=== PATIENT | female | born 1995 | race Caucasian/White ===

== ENCOUNTER 2019-11-19 10:48 | Emergency (ER) | payer OTHER ==
[2019-11-19 12:03] LABS: Absolute Lymphocytes (CBC) 1.7 K/uL (0.7-4.9); Basophils % 0.5 % (0-1.3); Hematocrit 41.3 % (36.0-45.0); Lymphocytes % 18.4 % (15.3-44.8); MPV 8.2 fL (7.6-11.3); RBC Red Blood Cell Count 4.85 M/uL (3.86-4.86)
[2019-11-19 12:12] LABS: Urine Blood NEGATIVE (NEG); Urine Glucose NEGATIVE (NEG); Urine Protein NEGATIVE (NEG); Urine Specific Gravity 1.025 (1.005-1.030); Urine pH 6.5 (5.0-7.0)
[2019-11-19 12:13] LABS: Albumin 3.4 g/dL (3.4-5.0); Bilirubin Direct 0.1 mg/dL (0-0.2); Bilirubin Total 0.5 mg/dL (0.2-1.0); Potassium 4.1 mmol/L (3.5-5.1); Protein, Total 7.4 g/dL (6.4-8.2)
[2019-11-19] MEDS ORDERED: NA CHLORIDE 0.9% 1,000 ML ONE (12:48)
[2019-11-19] MEDS ORDERED: ONDANSETRON 4 MG/2 ML VIAL ONE (12:48)
[2019-11-19] MEDS ORDERED: MORPHINE 4 MG/ML SYR ONE (12:48)
--- NOTE | 2019-11-19 13:17 | RAD REPORT ---
EXAM DESCRIPTION: CT - Abdomen Pelvis W Contrast - 11/19/2019 12:41 pm CLINICAL HISTORY: ABD PAIN, vomiting, nausea COMPARISON: No comparisons TECHNIQUE: Biphasic, helical CT imaging of the abdomen and pelvis was performed following 100 ml non -ionic IV contrast. No oral contrast given. All CT scans are performed using dose optimization technique as appropriate and may include automated exposure control or mA/KV adjustment according to patient size. FINDINGS: No suspicious findings in the lung bases. Liver shows a very pronounced fatty infiltration pattern with no focal liver lesions. Spleen and panc reas unremarkable. Gallbladder and biliary tree are also without suspicious finding. Symmetric renal function is seen with no hydronephrosis or suspicious renal mass. No pyelonephritis o r acute parenchymal process. No bladder abnormalities. No adrenal abnormalities. Uterus and ovaries s how no suspicious findings. No dilated bowel loops or bowel wall thickening. Appendix is normal. No active GI process evident. No free air, free fluid or inflammatory stranding. No hernia, mass or bulky lymphadenopathy. No suspicious bony findings. IMPRESSION: Contrast enhanced CT abdomen and pelvis showing no acute or emergent finding. Diffuse fatty infiltration of the liver.
--- NOTE | 2019-11-19 13:40 | EDPHYS ---
Physician Documentation [facility] Name: Farzaneh Ford Age: 24 yrs Sex: Female : 1995 Arrival Date: 11/19/2019 Time: 10:53 Bed 8 Private MD: ED Physician Domingo Cuevas HPI: 11/18 12:45 This 24 yrs old Female presents to ER via Ambulatory with complaints of kb Abdominal Pain, Weakness. 12:45 The patient presents with abdominal pain in the left upper quadrant, in the left lower kb quadrant. Onset: The symptoms/episode began/occurred 1 week(s) ago. The symptoms do not radiate. Associated signs and symptoms: none. The symptoms are described as constant. Modifying factors: The symptoms are alleviated by nothing, the symptoms are aggravated by nothing. Severity of pain: At its worst the pain was moderate in the emergency department the pain is unchanged. The patient has not experienced similar symptoms in the past. The patient has not recently seen a physician. 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 - Social history:: Smoking status: Patient denies any tobacco usage or history of. ROS: 15:52 Constitutional: Negative for fever, chills, and weight loss, Cardiovascular: Negative kb for chest pain, palpitations, and edema, Respiratory: Negative for shortness of breath, cough, wheezing, and pleuritic chest pain, MS/Extremity: Negative for injury and deformity, Skin: Negative for injury, rash, and discoloration, Neuro: Negative for headache, weakness, numbness, tingling, and seizure. 15:52 Abdomen/GI: Positive for abdominal pain, Negative for nausea, vomiting, and diarrhea. Exam: 15:56 Constitutional: This is a well developed, well nourished patient who is awake, alert, kb and in no acute distress. Head/Face: Normocephalic, atraumatic. Chest/axilla: Normal chest wall appearance and motion. Nontender with no deformity. No lesions are appreciated. Cardiovascular: Regular rate and rhythm with a normal S1 and S2. No gallops, murmurs, or rubs. Normal PMI, no JVD. No pulse deficits. Respiratory: Lungs have equal breath sounds bilaterally, clear to auscultation and percussion. No rales, rhonchi or wheezes noted. No increased work of breathing, no retractions or nasal flaring. Back: No spinal tenderness. No costovertebral tenderness. Full range of motion. Skin: Warm, dry with normal turgor. Normal color with no rashes, no lesions, and no evidence of cellulitis. MS/ Extremity: Pulses equal, no cyanosis. Neurovascular intact. Full, normal range of motion. Neuro: Awake and alert, GCS 15, oriented to person, place, time, and situation. Cranial nerves II-XII grossly intact. Motor strength 5/5 in all extremities. Sensory grossly intact. Cerebellar exam normal. Normal gait. 15:56 Abdomen/GI: Inspection: abdomen appears normal, Bowel sounds: normal, in all quadrants, Palpation: soft, in all quadrants, moderate abdominal tenderness, in the left upper quadrant. Vital Signs: 11:01 BP 106 / 95; Pulse 93; Resp 18; Temp 98.5(O); Pulse Ox 99% on R/A; Weight 108.86 kg; em Height 5 ft. 4 in. (162.56 cm); Pain 3/10; 11:42 BP 108 / 71; Pulse 75; Resp 18; Pulse Ox 96% ; sv 12:45 BP 106 / 58; Pulse 61; Resp 16 S; Pulse Ox 98% on R/A; ca1 13:40 BP 107 / 77; Pulse 57; Resp 16 S; Pulse Ox 98% on R/A; ca1 11:01 Body Mass Index 41.20 (108.86 kg, 162.56 cm) em MDM: 11:07 Patient medically screened. kb 15:56 Data reviewed: vital signs, nurses notes. Data interpreted: Pulse oximetry: on room air kb is 98 %. Interpretation: normal. Counseling: I had a detailed discussion with the patient and/or guardian regarding: the historical points, exam findings, and any diagnostic results supporting the discharge/admit diagnosis, lab results, radiology results, the need for outpatient follow up, a family practitioner, to return to the emergency department if symptoms worsen or persist or if there are any questions or concerns that arise at home. 11/18 11:12 Order name: Basic Metabolic Panel; Complete Time: 12:18 kb 11/18 11:12 Order name: CBC with Diff; Complete Time: 12:09 kb 11/18 11:12 Order name: Hepatic Function; Complete Time: 12:18 kb 11/18 11:12 Order name: Lipase; Complete Time: 12:18 kb 11/18 11:27 Order name: Urine Dipstick--Ancillary (enter results); Complete Time: 12:18 em1 11/18 11:27 Order name: Urine --Ancillary (enter results); Complete Time: 12:18 em1 11/18 11:12 Order name: IV Saline Lock; Complete Time: 11:21 kb 11/18 11:12 Order name: Labs collected and sent; Complete Time: 11:21 kb 11/18 11:12 Order name: Urine Dipstick-Ancillary (obtain specimen); Complete Time: 11:15 kb 11/18 12:31 Order name: CT Abd/Pelvis - IV Contrast Only; Complete Time: 13:26 kb Administered Medications: 12:45 Drug: Zofran (Ondansetron) 4 mg Route: IVP; Site: left antecubital; ca1 13:33 Follow up: Response: No adverse reaction; Nausea is decreased ca1 12:47 Drug: morphine 4 mg {Note: rass 0.} Route: IVP; Site: left antecubital; ca1 13:34 Follow up: Response: No adverse reaction; Pain is decreased; RASS: Alert and Calm (0) ca1 12:49 Drug: NS 0.9% 1000 ml Route: IV; Rate: 1000 ml; Site: left antecubital; ca1 13:45 Follow up: Response: No adverse reaction; IV Status: Completed infusion; IV Intake: ca1 1000ml Disposition: 11/19/19 13:39 Discharged to Home. Impression: Upper abdominal pain, unspecified. - Condition is Stable. - Discharge Instructions: Abdominal Pain, Adult, [id number]. - Prescriptions for Bentyl 20 mg Oral Tablet - take 1 tablet by ORAL route every 6 hours As needed; 20 tablet. - Medication Reconciliation Form, Thank You Letter, Antibiotic Education, Prescription Opioid Use, Work release form form. - Follow up: Emergency Department; When: As needed; Reason: Worsening of condition. Follow up: Private Physician; When: 2 - 3 days; Reason: Recheck today's complaints, Continuance of care, Re-evaluation by your physician. Addendum: 11/20/2019 13:59 Co-signature as Attending Physician, Domingo Cuevas MD I agree with the assessment and k dr plan of care. Signatures: Dispatcher [employer] EDMS Meghan Tirado, ACCOUNTING MANAGER-C ACCOUNTING MANAGER-Ckb Domingo Cuevas MD MD [facility] Adolfo Watts, RN RN em AcEileen yeager RN RN ca1 Corrections: (The following items were deleted from the chart) 11/18 13:49 13:39 11/19/2019 13:39 Discharged to Home. Impression: Upper abdominal pain, ca1 unspecified. Condition is Stable. Forms are Medication Reconciliation Form, Thank You Letter, Antibiotic Education, Prescription Opioid Use. Follow up: Emergency Department; When: As needed; Reason: Worsening of condition. Follow up: Private Physician; When: 2 - 3 days; Reason: Recheck today's complaints, Continuance of care, Re-evaluation by your physician. kb
--- NOTE | 2019-11-19 13:40 | ER ---
Nurse's Notes [facility] Name: Farzaneh Ford Age: 24 yrs Sex: Female : 1995 Arrival Date: 11/19/2019 Time: 10:53 Bed 8 Private MD: Diagnosis: Upper abdominal pain, unspecified Presentation: 11/18 11:01 Chief complaint: Patient states: abdominal pain for one week, nausea and vomiting, em denies fever or urinary symptoms. Coronavirus screen: Client denies travel out of the [place] in the last 14 days. Ebola Screen: Patient negative for fever greater than or equal to 101.5 degrees Fahrenheit, and additional compatible Ebola Virus Disease symptoms Patient denies exposure to infectious person. Patient denies travel to an Ebola-affected area in the 21 days before illness onset. No symptoms or risks identified at this time. Initial Sepsis Screen: Does the patient meet any 2 criteria? HR > 90 bpm. Does the patient have a suspected source of infection? No. Patient's initial sepsis screen is negative. Risk Assessment: Do you want to hurt yourself or someone else? Patient reports no desire to harm self or others. Onset of symptoms was November 12, 2019. 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 - Social history:: Smoking status: Patient denies any tobacco usage or history of. Screenin:10 Abuse screen: Denies threats or abuse. Denies injuries from another. Nutritional ca1 screening: No deficits noted. Tuberculosis screening: No symptoms or risk factors identified. Fall Risk IV access (20 points). Assessment: 11:10 General: Appears in no apparent distress. comfortable, Behavior is calm, cooperative, ca1 appropriate for age. Pain: Complains of pain in abdomen. Pain: Pain currently is 3 out of 10 on a pain scale. Quality of pain is described as sharp, Pain began a week Is continuous. Neuro: Level of Consciousness is awake, alert, obeys commands, Oriented to person, place, time, situation. Cardiovascular: Heart tones S1 S2 present Capillary refill < 3 seconds Patient's skin is warm and dry. Respiratory: Airway is patent Respiratory effort is even, unlabored, Respiratory pattern is regular, symmetrical, Breath sounds are clear bilaterally. GI: Abdomen is round non-distended, Bowel sounds present X 4 quads. Abd is soft X 4 quads Abdomen is tender to palpation in right upper quadrant, left upper quadrant and left lower quadrant Reports nausea, vomiting. : No signs and/or symptoms were reported regarding the genitourinary system. Urine is clear. EENT: No signs and/or symptoms were reported regarding the EENT system. Derm: Skin is intact, is healthy with good turgor, Skin is pink, warm \\T\\ dry. Musculoskeletal: Circulation, motion, and sensation intact. Capillary refill < 3 seconds. 12:20 Reassessment: Patient appears in no apparent distress at this time. Patient and/or ca1 family updated on plan of care and expected duration. Pain level reassessed. Patient is alert/active/playful, equal unlabored respirations, skin warm/dry/pink. 13:19 Reassessment: Patient appears in no apparent distress at this time. Patient and/or ca1 family updated on plan of care and expected duration. Pain level reassessed. Patient is alert, oriented x 3, equal unlabored respirations, skin warm/dry/pink. 13:40 Reassessment: Patient appears in no apparent distress at this time. Patient is alert, ca1 oriented x 3, equal unlabored respirations, skin warm/dry/pink. Patient states feeling better. 13:48 Reassessment: Pt states, "I will Uber home and somebody will continuous pickling line pickler my car so I don't ca1 have to drive home". Vital Signs: 11:01 BP 106 / 95; Pulse 93; Resp 18; Temp 98.5(O); Pulse Ox 99% on R/A; Weight 108.86 kg; em Height 5 ft. 4 in. (162.56 cm); Pain 310; 11:42 BP 108 / 71; Pulse 75; Resp 18; Pulse Ox 96% ; sv 12:45 BP 106 / 58; Pulse 61; Resp 16 S; Pulse Ox 98% on R/A; ca1 13:40 BP 107 / 77; Pulse 57; Resp 16 S; Pulse Ox 98% on R/A; ca1 11:01 Body Mass Index 41.20 (108.86 kg, 162.56 cm) em ED Course: 10:53 Patient arrived in ED. ds1 10:58 Meghan Tirado [facility]C [facility]. kb 10:58 Domingo Cuevas MD is Attending Physician. kb 11:03 Triage completed. em 11:05 Arm band placed on. em 11:07 Eileen Sow, STACIE is Primary Nurse. ca1 11:10 Patient has correct armband on for positive identification. Placed in gown. Bed in low ca1 position. Call light in reach. Side rails up X 1. Pulse ox on. NIBP on. Warm blanket given. 11:21 Urine collected: clean catch specimen, clear. ca1 11:48 Initial lab(s) drawn, by ED staff, sent to lab. Inserted saline lock: 22 gauge in left ca1 antecubital area, using aseptic technique. Blood collected. 12:41 CT Abd/Pelvis - IV Contrast Only In Process Unspecified. EDMS 13:41 No provider procedures requiring assistance completed. ca1 13:48 IV discontinued, intact, bleeding controlled, No redness/swelling at site. Pressure ca1 dressing applied. Administered Medications: 12:45 Drug: Zofran (Ondansetron) 4 mg Route: IVP; Site: left antecubital; ca1 13:33 Follow up: Response: No adverse reaction; Nausea is decreased ca1 12:47 Drug: morphine 4 mg {Note: rass 0.} Route: IVP; Site: left antecubital; ca1 13:34 Follow up: Response: No adverse reaction; Pain is decreased; RASS: Alert and Calm (0) ca1 12:49 Drug: NS 0.9% 1000 ml Route: IV; Rate: 1000 ml; Site: left antecubital; ca1 13:45 Follow up: Response: No adverse reaction; IV Status: Completed infusion; IV Intake: ca1 1000ml Intake: 13:45 IV: 1000ml; Total: 1000ml. ca1 Outcome: 13:39 Discharge ordered by . kb 13:48 Discharged to home ambulatory. ca1 13:48 Condition: stable 13:48 Discharge instructions given to patient, Instructed on discharge instructions, follow up and referral plans. medication usage, Demonstrated understanding of instructions, follow-up care, medications, Prescriptions given X 1. 13:49 Patient left the ED. ca1 Signatures: Dispatcher [employer] EDFL Meghan Tirado, KILO-C KILO-Francine Resendiz RN RN Adolfo Lennon RN RN em [place], Demi ds1 Eileen Sow RN RN ca1 Corrections: (The following items were deleted from the chart) 12:20 11:10 Pain: Pain currently is 3 out of 10 on a pain scale. Pain began a week ca1 ca1 12:20 11:10 GI: Abdomen is round non-distended, Bowel sounds present X 4 quads. Abd is soft ca1 and non tender X 4 quads. Reports nausea, vomiting, ca1 12:51 12:12 morphine 4 mg IVP in left antecubital ca1 ca1
[2019-11-19 13:59] VITALS: TEMP 98.5
[2019-11-19 14:03] VITALS: O2SAT 98
[2019-11-19 14:04] VITALS: BP 107/77
== END 2019-11-19 13:49 | disposition home or self-care (01) ==
LOC: ER 10:48
DX: R10.10 Upper abdominal pain, unspecified (principal); E03.9 Hypothyroidism, unspecified; F41.9 Anxiety disorder, unspecified; Z88.8 Allergy status to other drugs, medicaments and biological substances
CPT/HCPCS: 96361; 85025; 80048; 36415; 81025; 80076; 81003; 83690; 74177; 96375; 96374; 99284; Q9967; J7030; J2405